=== PATIENT | male | born 1955 | race Two or more races ===

== ENCOUNTER → 2016-06-02 | Outpatient (CLI) | payer OTHER ==
--- NOTE | 2016-06-02 15:37 | RADRPT ---
PROCEDURE: XR AP pelvis. CLINICAL INDICATION: Hip pain TECHNIQUE: AP view of the pelvis performed COMPARISON: No prior studies are available for comparison. FINDINGS: 2 screws present over the right femoral head. There are changes consistent with avascular necrosis involving the right femoral head with increased sclerosis and irregularity of the cortex. There is moderate right hip osteoarthrosis. This is associated with joint space narrowing, subchondr al sclerosis , subchondral cyst formation and osteophytosis. There is normal mineralization. No fr actures or osseous lesions are identified. The soft tissues are unremarkable. 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 RPTAT: HGDB .Sloan Brownlee MD, Date Time Electronically viewed and signed by .Sloan Brownlee MD, on 06/02/2016 15:36 .B/
== END | disposition home or self-care (01) ==
LOC: HKI 15:29
PROVIDERS: ATTEND Orthopaedic Surgery
DX: M16.11 Unilateral primary osteoarthritis, right hip (principal); M25.551 Pain in right hip
CPT/HCPCS: 73502; Z7500; G0463

== ENCOUNTER → 2016-08-04 | Outpatient (CLI) | payer BC, OTHER | END | disposition home or self-care (01) | LOC: HKI 09:32 | PROVIDERS: ATTEND Orthopaedic Surgery | DX: M25.551 Pain in right hip (principal); M16.11 Unilateral primary osteoarthritis, right hip | CPT/HCPCS: G0463 ==

== ENCOUNTER 2016-08-10 05:39 | Inpatient (IN) | payer BC ==
--- NOTE | 2016-08-09 09:56 | RADRPT ---
PROCEDURE: Chest radiograph series. CLINICAL INDICATION: Preop TECHNIQUE: PA and lateral chest x-ray. COMPARISON: None available FINDINGS: The cardiomediastinal silhouette is unremarkable. The lungs and costophrenic angles are clear. The o sseous structures are unremarkable. IMPRESSION: 1. Unremarkable chest radiograph series. RPTAT: AA .Blayne Sidhu MD, MD Date Time Electronically viewed and signed by .Blayne Sidhu MD, on 08/09/2016 09:55 .B/
[2016-08-09 16:56] VITALS: BMI 22.3
[~2016-08-10] VITALS: Ht 177.8 cm; Wt 88.0 kg
[2016-08-10] VITALS (27 sets, daily range): BP systolic 108–139; BP diastolic 56–80; PULSE 56–78; RESP 8–20; Ht 177.8 cm; Wt 88.0 kg
[2016-08-10] MEDS: LACTATED RINGER'S 1,000 ML IV SCH ×4 (05:00→17:57)
[~2016-08-10 05:39] MED LIST: BUPIVACAINE LIPOSOME/PF 266 MG/20 ML VIAL INFIL ONE; CEFAZOLIN 2GM/50 ML (PMX) 50 ML X1 BEFORE INCISION IVPB ONE; CELECOXIB 400 MG PO X1 DOSE PO ONE; PAIN COCKTAIL-CEFUROXIME IRR ONE; PREGABALIN 300 MG PO X1 PO ONE; SOD CHLORIDE 0.9% IV ONE; TRANEXAMIC ACID 890 MG in SOD CHLORIDE 0.9% 100 ML IVPB ONE; TRANEXAMIC ACID IV ONE; oxyCODONE (CR) 10 MG TAB [oxyCONTIN] X1 DOSE PO ONE; traMADOL 50 MG TAB X 1 DOSE PO ONE
[2016-08-10] MEDS ORDERED: BACITRACIN 50000 UNITS INJ ONE (06:37)
[2016-08-10] MEDS ORDERED: POLYMYXIN B 500000 UNIT INJ ONE (06:41)
[2016-08-10] MEDS ORDERED: VANCOMYCIN 1 GM INJ ONE (06:41)
[2016-08-10] MEDS ORDERED: SODIUM CL BACTERIOSTATIC 30 ML INJ ONE (06:41)
[2016-08-10] MEDS ORDERED: DESFLURANE 15 MIN ONE ×2 (07:00)
[2016-08-10] MEDS ORDERED: LIDOCAINE 2% (SDV) 5 ML INJ ONE ×2 (07:00)
[2016-08-10] MEDS ORDERED: GLYCOPYRROLATE 0.4 MG INJ ONE (07:05)
[2016-08-10] MEDS ORDERED: MIDAZOLAM 1 MG/ML 2 ML INJ ONE (07:05)
[2016-08-10] MEDS ORDERED: CEFAZOLIN 1 GM INJ ONE ×2 (07:05→07:13)
[2016-08-10] MEDS ORDERED: PROPOFOL 0 ML ONE (07:05)
[2016-08-10] MEDS ORDERED: NEOSTIGMINE 3 MG/3 ML SYRINGE ONE (07:05)
[2016-08-10] MEDS ORDERED: ROCURONIUM 50 MG INJ ONE (07:05)
[2016-08-10] MEDS ORDERED: ONDANSETRON 4 MG INJ ONE (07:06)
[2016-08-10] MEDS ORDERED: FENTAnyl 50 MCG/ML VIAL ONE (07:06)
[2016-08-10] MEDS ORDERED: DEXAMETHASONE 4 MG/ML 1 ML INJ ONE (07:06)
[2016-08-10] MEDS ORDERED: PROPOFOL 100 ML ONE (07:13)
[2016-08-10] MEDS ORDERED: ETOMIDATE 20 MG INJ ONE (07:16)
--- NOTE | 2016-08-10 07:18 | HPN ---
Date/Time of Note Date/Time of Note DATE: 08/10/16 TIME: 07:17 Interval H&P Admission Note Pt. seen H&P reviewed: No system changes No change from H&P on 08/08/16 by TOMAS Lerner MD Aug 10, 2016 07:18
[2016-08-10] MEDS ORDERED: MIDAZOLAM 1 MG/ML 2 ML INJ IV PRN (08:30)
[2016-08-10] MEDS ORDERED: TRIMETHOBENZAMIDE 100 MG/ML VIAL IM PRN (08:30)
[2016-08-10] MEDS ORDERED: HYDROmorphONE (0.2 MG/ML) 10ML SYG IV PRN ×3 (08:30)
[2016-08-10] MEDS ORDERED: ONDANSETRON 4 MG INJ IV PRN ×2 (08:30→10:30)
[2016-08-10] MEDS ORDERED: FENTAnyl 50 MCG/ML VIAL IV PRN ×3 (08:30)
[2016-08-10] MEDS ORDERED: EPHEDrine SULFATE 50 MG/5 ML SYG IV PRN (08:30)
[2016-08-10] MEDS ORDERED: hydrALAzine 20 MG INJ IV PRN (08:30)
[2016-08-10] MEDS ORDERED: LABETALOL HCL 20MG INJ IV PRN (08:30)
[2016-08-10] MEDS ORDERED: DIPHENHYDRAMINE 50 MG INJ IV PRN (08:30)
[2016-08-10] MEDS ORDERED: MEPERIDINE 25 MG INJ IV PRN (08:30)
--- NOTE | 2016-08-10 09:42 | RADRPT ---
PROCEDURE: Intraoperative imaging of the right hip with fluoroscopy. CLINICAL INDICATION: Right hip pain. Intraoperative. TECHNIQUE: 18 images of the right hip were obtained in the operating room with an image intensifie r. No radiologist was in attendance. 0.5 minutes of fluoroscopy time was used. COMPARISON: No prior study is available for comparison. FINDINGS: Images demonstrate placement of a total right hip arthroplasty. IMPRESSION: 1. Satisfactory intraoperative imaging of the right hip. RPTAT: QQ .Angelito Stinson MD, MD Date Time Electronically viewed and signed by .Angelito Stinson MD, MD on 08/10/2016 09:42 .R/
--- NOTE | 2016-08-10 10:28 | PN ---
Date/Time of Note Date/Time of Note DATE: 08/10/16 TIME: 10:25 Assessment/Plan Lines/Catheters IV Catheter Type (from Nrsg): Peripheral IV Assessment/Plan Assessment/Plan Stable in PACU, right anterior KELLY -continue abx until drains removed -pain meds as needed -ASA/SCDs for DVT prophylaxis -OOB with PT -check AM labs -monitor drain -d/c garcia in AM XR of the right hip is pending at this time Subjective 24 Hr Interval Summary Stable in PACU. Moving all extremities. Denies pain. Exam/Review of Systems Vital Signs Vitals Vital Signs Date Time Temp Pulse Resp B/P Pulse Ox O2 Delivery O2 Flow Rate FiO2 08/10/16 10:23 98.1 08/10/16 06:41 71 18 132/78 98 Exam Free Text/Dictation Hemovac: minimal Dressing dry Incision clean, dry, and intact without redness or drainage 5/5 Quadriceps, Tibialis Anterior, EHL, Gastroc, Soleus, Peroneals Normal sensation Palpable DT/PT, CR <2 sec No distal edema REJI SABILLON PA-C Aug 10, 2016 10:27
--- NOTE | 2016-08-10 10:29 | OPR ---
Date/Time of Note Date/Time of Note DATE: 08/10/16 TIME: 10:28 Operative Report Free Text/Dictation Dictation # [id number] Procedure Date: Aug 10, 2016 Preoperative Diagnosis Post-traumatic right hip OA Postoperative Diagnosis Same Operation Performed Conversion of previous right hip surgery to right anterior KELLY Surgeon: TOMAS RAPHAEL MD dental assistant: REJI SABILLON PA-C Anesthesia: general, spinal Anesthesiologist: Abdullahi Underwood M.D. Estimated Blood Loss: 250 - 300 ml's Specimens Femoral Head Tubes/Drains Hemovac x 1 Complications: None Pt Condition Post Procedure: stable Disposition: PACU TOMAS RAPHAEL MD Aug 10, 2016 10:29
[2016-08-10] MEDS ORDERED: NACL 0.9% 3 ML SYG IV SCH (10:30)
[2016-08-10] MEDS ORDERED: NA PHOSPHATE/BIPHOS 133 ML ENEMA PR PRN (10:30)
[2016-08-10] MEDS ORDERED: BISACODYL 10 MG SUPP PR PRN (10:30)
[2016-08-10] MEDS ORDERED: oxyCODONE 5 MG TAB PO PRN ×2 (10:30)
[2016-08-10] MEDS ORDERED: HYDROmorphONE 1 MG/ML SYG IV PRN (10:30)
[2016-08-10] MEDS ORDERED: MAGNESIUM HYDROXIDE 30ML CUP PO PRN (10:30)
[2016-08-10] MEDS ORDERED: DIPHENHYDRAMINE 25 MG CAP PO PRN (10:30)
[2016-08-10] MEDS ORDERED: ASPIRIN (EC) 325 MG TAB PO ONE (10:30)
[2016-08-10] MEDS: CEFAZOLIN 2 GM/50 ML (PMX) 50 ML IVPB SCH ×2 (10:57→21:11)
--- NOTE | 2016-08-10 11:03 | OPR ---
DATE OF OPERATION: 08/10/2016 PREOPERATIVE DIAGNOSIS: Post-traumatic right hip osteoarthritis. POSTOPERATIVE DIAGNOSIS: Post-traumatic right hip osteoarthritis. OPERATION PERFORMED: Conversion of previous surgery to right total hip arthroplasty. SURGEON: Tomas Guy MD TRUSTEE OF ESTATE: EDIL Skinner COMPONENTS USED: DePuy size 58 mm Gryption [employer] cup, 58/36 neutral Altrx polyethylene liner, size 9 standard ACTIS stem, 36+1.5 ceramic head. ANESTHESIA: Spinal plus general endotracheal intubation plus periarticular injection. ANESTHESIOLOGIST: Dr. Underwood. ESTIMATED BLOOD LOSS: 300 mL. INTRAVENOUS FLUIDS: Two liters crystalloid. SPECIMENS: Femoral head. DRAINS: Hemovac x1. COMPLICATIONS: None. DISPOSITION: Patient tolerated the procedure well and was taken to the recovery room in stable condition. INDICATIONS: The patient is a 61-year-old gentleman who had a previous injury to his right hip and underwent an open reduction internal fixation of a femoral head fracture. He has gone on to develop significant posttraumatic osteoarthritis of the hip. He has failed nonsurgical means of treatment to control his pain including activity modifications, pain medications and ambulatory assist devices. Despite these measures, he has had worsening pain and I felt he would benefit from a total hip arthroplasty through an anterior approach. The remainder of was placed and Please note that where the incision was made. Following the previous [place]. DISPOSITION: The patient tolerated the procedure well and was taken to the recovery room in stable condition. The risks, benefits, and alternatives of the procedure were explained in detail to the patient. I explained the risks of the surgery to include, but not be limited to: bleeding and possible need for blood transfusion; infection; pain; stiffness; neurovascular injury with possible numbness, weakness, and/or paralysis anywhere from the hip down to the toes; fracture; instability; dislocation; leg length inequality; wear and/or loosening of the prosthesis and possible need for future revision; blood clots; pulmonary embolism; and anesthetic complications such as heart attack, stroke, GI bleed, pneumonia, and/ or . Ample time was allowed for the patient to ask questions, all of which were addressed and answered. The patient understood the risks involved and wished to proceed. Informed consent was signed prior to the procedure. PROCEDURE: The patient's right hip was initialed with a marking pen in the preoperative area to identify the correct operative site. The patient was brought to the operating room and transferred from the [facility] to the [facility] table where a spinal anesthetic was administered. The patient was then anesthetized and intubated. A Solis catheter was placed. Both feet were placed into well-padded boots which were then placed into the leg holders of the traction booms. A timeout was performed to confirm that the right side was the correct operative site. The patient was given 2 g of intravenous Ancef within one hour prior to the procedure. The operative hip was prepped and draped in the usual sterile fashion. The previous [place] scar was excised. The tensor fascia mian was incised along the length of the wound. The tensor fascia muscle was retracted laterally and the sartorius medially. The anterior circumflex vessels were identified and tied off with 2-0 silk suture and coagulated with the Tissue Link spice grinder. The rectus femoris was elevated off the anterior capsule and an anterior capsulectomy performed. A femoral neck osteotomy was made and the head removed from the acetabulum. The acetabulum was denuded of cartilage circumferentially, as was the femoral head. Retractors were placed around the acetabulum. The remnants of the labrum and ligamentum teres were excised. I reamed the acetabulum to the medial wall and then went into an anatomic position and increased the reamer size in 2 mm increments until I got a good bite and was down to bleeding subchondral bone. The [employer] cup was opened and impacted into the acetabulum and sat flush circumferentially, getting a good bite. C-arm imaging showed it had about 40 to 45 degrees of abduction and 20 degrees of anteversion. The real liner was opened and impacted into the acetabulum and sat flush circumferentially. Attention was turned towards the femur. The operative leg was carefully lowered to the floor with the leg adducted. The foot was then externally rotated to approximately 110 degrees. A posteromedial release was performed to optimize exposure. The femoral hook was placed underneath the proximal femur and the hydraulic lift was then used to elevate the femur up out of the wound. The cookkwadwo cutter osteotome was used to remove the remaining overhanging greater trochanter. The femur was then broached, going up in one size increments until it sat flush with the neck cut and a stable fit was achieved. The trial neck and head were assembled and reduced into the acetabulum. Fluoroscopic imaging showed the components to be in good position and the leg lengths and offsets to be equal. At this point, the trial was dislocated and the trial broach removed. The canal was irrigated and dried. The real stem was opened and impacted into the femur. The trunnion was irrigated and dried, and the real femoral head was impacted onto the trunnion, and reduced into the acetabulum. The soft tissues were infiltrated with a mixture of 150 mg of 0.5% Bupivacaine, 8 mg of Duramorph, 300 mcg of epinephrine, 30 mg of Toradol, 100 mcg of clonidine, 750 mg of cefuroxime and 86 mL of normal saline, followed by an injection of 266 mg of liposomal Bupivacaine. At this point the hip was irrigated with a mixture of betadine/saline and then antibiotic saline with pulsatile lavage. A Hemovac drain was placed in the deep portion of the wound and brought out the anterolateral thigh. There was good hemostasis. The tensor fascia mian was repaired with a running #1 Vicryl. The deep fat layer was irrigated and closed with 2-0 Stratafix and the subcutaneous layer closed with 3 -0 Vicryl and the skin was closed with shruthi and then sealed with Dermabond. The drain was secured with 3-0 nylon. The sponge and needle counts were correct at the end of the case. The wound was covered with an occlusive dressing. The patient was awakened, extubated, and taken to the recovery room in stable condition. Dictated By: TOMAS TAMEZ/RUT Conf#: [id number] DID#: [id number] MTDHema
[2016-08-10 12:12] LABS: ADD UMIC NO; URINE BILIRUBIN (Dip) NEGATIVE (NEGATIVE); URINE BLOOD (Dip) NEGATIVE (NEGATIVE); URINE COLOR LT. YELLOW (YELLOW); URINE GLUCOSE (Dip) NEGATIVE (NEGATIVE); URINE KETONES (Dip) NEGATIVE (NEGATIVE); URINE LEUKOCYTE ESTERASE (Dip) NEGATIVE (NEGATIVE); URINE NITRITE (Dip) NEGATIVE (NEGATIVE); URINE TOTAL PROTEIN (Dip) NEGATIVE (NEGATIVE); URINE UROBILINOGEN (Dip) 0.2 E.U./dL (0.1-1.0)
--- NOTE | 2016-08-10 12:28 | CONS ---
DATE OF ADMISSION: 08/10/2016 DATE OF CONSULTATION: 08/10/2016 REASON FOR CONSULTATION: Medical management postoperatively. CHIEF COMPLAINT: Right hip pain. HISTORY OF PRESENT ILLNESS: This is a pleasant 61-year-old gentleman with no significant past medic al history who has been seen and evaluated by his primary care physician, Dr. Júnior Woo, secondar y to having right hip pain and was referred to Dr. Guy as outpatient for evaluation of his right hip, which was found to have posttraumatic right hip osteoarthritis. According to the history, the patient has a previous injury to his right hip and underwent open reduction internal fixation of the femoral head fracture, and he has gone on to have significant post-traumatic osteoarthritis of his hip. He has failed nonsurgical means of treatment to control his pain including activity modificati on, pain medication and ambulatory assist device. Despite these measures, he has had worsening of t he pain in his right hip and it was felt that he would benefit from total hip arthroplasty. After discussing the mode of treatment and risks and benefits of the surgery, the patient agreed to proceed with surgical intervention. Today, on 08/10/2016, after signing consent, the patient was ta shaneka to OR for conversion of the previous surgery to the right total hip arthroplasty. The patient t olerated the procedure well. Estimated blood loss 300 mL, 2 liters of crystalloid was given. The p atient has a Hemovac drain and the specimen taken was femoral head. The patient was extubated and w as transferred to recovery room where medicine team was consulted. At this time, the patient denies having any fever, chills, weight gain, weight loss, anorexia. No chest pain, palpitations, edema, orthopnea. No change in visual acuity, diplopia, photophobia. No headache, dizziness, lightheadedn ess. No change in visual acuity, no abdominal pain, no nausea, vomiting, diarrhea, or any other dis comfort. He does complain of having mild right hip discomfort postoperatively which is well control led by pain medication. PAST MEDICAL AND SURGICAL HISTORY: 1. Posttraumatic Right hip osteoarthritis. 2. Right hip open reduction internal fixation of the femoral head fracture. MEDICATIONS: None. SOCIAL HISTORY: Negative for smoking. He drinks alcohol occasionally. No illicit drug history. P ositive for diabetes mellitus and heart disease. ALLERGIES: NO KNOWN DRUG ALLERGIES. REVIEW OF SYSTEMS: Negative for headache, head trauma, no blurred vision, no change in vision, no t innitus or change in hearing. No neck stiffness. No sore throat, dysphagia. No palpitations, ches t pain. No cough, wheezing. No nausea, vomiting, melena or hematochezia. No dysuria, hematuria, n o weakness in upper and lower extremities. No history of seizure. No rash or lesion, no history of anxiety or depression. PHYSICAL EXAMINATION: VITAL SIGNS: Temperature 98.1, pulse 60, respiration rate 10 to 16, blood pressure 117/71, oxygen 9 8% on room air. GENERAL APPEARANCE: The patient is lying in bed comfortably without any distress. He is awake, aline rt, oriented. He is able to answer my questions properly. EYES AND ENT: Conjunctivae and lids are normal. Pupils are normal. Extraocular normal. Hearing g rossly normal. Lips are normal. Oral mucosa is moist. NECK: Supple. Trachea is midline. No lymphadenopathy. RESPIRATORY: Effort is normal. Clear to auscultation bilaterally. CARDIOVASCULAR: Normal S1, S2. Regular rhythm and rate. No murmur, no bruits, no edema. Peripher al pulses and radial pulses palpable. Cap refill is normal. CHEST: Normal expansion of thorax during inspiration. GASTROINTESTINAL: Abdomen is soft, nontender, not distended. Bowel sounds present. No guarding, n o rebound. GENITOURINARY: Deferred. MUSCULOSKELETAL: Upper extremity within normal limits. Left lower extremity within normal limits. Right lower extremity, status post hip surgery. Surgical site is dry and cleansed. Hemovac drain i n place, intact. NEUROLOGIC: Cranial nerves II through XII are grossly intact. PSYCHIATRIC: Normal judgment and insight. Alert and oriented x3. Mood and affect is normal. LABORATORY WORK AND IMAGING: WBC 6.5, hemoglobin 13.3, hematocrit 38.9, platelets 238. Sodium 141, potassium 4.1, chloride 102, bicarbonate 27, calcium 9.5, AST 18, ALT 23, BUN 16, creatinine 0.88, glucose 99. GFR 94. ASSESSMENT AND PLAN: 1. Posttraumatic right hip osteoarthritis status conversion of previous right hip surgery to anteri or total hip arthroplasty. Continue post-surgical care. PT, OT evaluate and treat, pain management . For deep venous thrombosis prophylaxis, the patient will be placed on aspirin as per orthopedic s urgeon recommendation. 2. Continue cefazolin prophylactically. 3. For gastrointestinal prophylaxis, on Protonix. Dictated By: WOODROW GÓMEZ/RUT Conf#: [id number] DID#: [id number]
[2016-08-10 12:31] LABS: HEMOGLOBIN 12.5 g/dl (14.0-18.0)
[2016-08-10] MEDS: ACETAMINOPHEN 1000MG/100ML IV 100 ML IVPB SCH ×3 (12:41→23:58)
[2016-08-10] MEDS: traMADol 50 MG TAB PO SCH ×3 (12:41→23:58)
[2016-08-10 12:50] LABS: POTASSIUM 3.6 mmol/L (3.5-5.1)
[2016-08-10 12:53] LABS: CALCIUM 8.6 mg/dl (8.4-10.2); CREATININE 0.64 mg/dl (0.61-1.24)
[2016-08-10] MEDS ORDERED: EXPAREL NOTE (BUPIVICAINE LIPOSOMAL) XX SCH (13:00)
[2016-08-10] MEDS ORDERED: TRANEXAMIC ACID 880 MG in SOD CHLORIDE 0.9% 100 ML IVPB ONE ×2 (15:00→18:00)
--- NOTE | 2016-08-10 15:17 | RADRPT ---
PROCEDURE: XR Pelvis. CLINICAL INDICATION: Hip pain TECHNIQUE: Single AP view of the pelvis. COMPARISON: No prior studies are available for comparison. FINDINGS: Right hip replacement is identified. The prosthetic components are in appropriate position and alig nment. The osseous structures are intact. No destructive bony lesions are observed. Left hip join t is unremarkable.. Soft tissue drain is seen over the right hip. Soft tissue air over the right h ip is procedural in nature. Solis catheter is seen in the pelvis. IMPRESSION: Right hip replacement. Prosthetic components are in appropriate position and alignment. RPTAT: AA .Be Flowers MD, Date Time Electronically viewed and signed by .Be Flowers MD, on 08/10/2016 15:17 .P/
--- NOTE | 2016-08-10 15:18 | RADRPT ---
PROCEDURE: XR Right Hip. CLINICAL INDICATION: Status post hip replacement TECHNIQUE: AP view of the right hip was obtained. The images reviewed on a PACS workstation. COMPARISON: June 02, 2016 FINDINGS: Right hip replacement is identified. Prosthetic components are in appropriate position and alignmen t. No fractures or destructive lesions are observed. Surgical drain is seen in the hip. Soft tissu e air is procedural in nature. IMPRESSION: Status post right hip replacement. Prosthetic components are in appropriate position and alignment. RPTAT: AA .Be Flowers MD, Date Time Electronically viewed and signed by .Be Flowers MD, on 08/10/2016 15:18 .P/
[2016-08-10] MEDS: PANTOPRAZOLE (EC) 40 MG TAB PO SCH (17:56)
[2016-08-10] MEDS: PREGABALIN 50 MG CAP PO SCH (20:08)
[2016-08-10] MEDS: DOCUSATE SODIUM 100 MG CAP PO SCH (20:08)
[2016-08-11] MEDS: LACTATED RINGER'S 1,000 ML IV SCH ×6 (01:15→21:00)
[2016-08-11] MEDS: CEFAZOLIN 2 GM/50 ML (PMX) 50 ML IVPB SCH (03:40)
[2016-08-11 05:28] LABS: HEMOGLOBIN 10.4 g/dl (14.0-18.0)
[2016-08-11] MEDS: ACETAMINOPHEN 1000MG/100ML IV 100 ML IVPB SCH (05:42)
[2016-08-11] MEDS: traMADol 50 MG TAB PO SCH ×3 (05:42→17:25)
[2016-08-11] MEDS: PANTOPRAZOLE (EC) 40 MG TAB PO SCH ×2 (05:42→17:25)
[2016-08-11 05:50] LABS: CALCIUM 8.3 mg/dl (8.4-10.2); CREATININE 0.64 mg/dl (0.61-1.24); POTASSIUM 4.2 mmol/L (3.5-5.1)
[2016-08-11 08:12] VITALS: BP 120/73; RESP 18
[2016-08-11] MEDS: ASPIRIN (EC) 325 MG TAB PO SCH ×2 (08:17→20:40)
[2016-08-11] MEDS: DOCUSATE SODIUM 100 MG CAP PO SCH ×2 (08:17→20:40)
[2016-08-11] MEDS: PREGABALIN 50 MG CAP PO SCH ×2 (08:17→20:41)
[2016-08-11] MEDS: CELECOXIB 200 MG CAP PO SCH (08:17)
--- NOTE | 2016-08-11 08:34 | PN ---
Date/Time of Note Date/Time of Note DATE: 08/11/16 TIME: 08:33 Assessment/Plan Lines/Catheters IV Catheter Type (from Nrsg): Peripheral IV Solsi in Place (from Nrsg): Yes Assessment/Plan Assessment/Plan Stable POD #1, s/p right anterior KELLY -d/c abx -pain meds as needed -ASA/SCDs for DVT prophylaxis -OOB with PT -drain removed -check AM labs -d/c planning. Will plan to go home tomorrow Subjective 24 Hr Interval Summary No acute overnight events. Denies any significant pain. Began PT yesterday and made excellent progress. VSS, afebrile. Will plan to go home upon discharge. Exam/Review of Systems Vital Signs Vitals Vital Signs Date Time Temp Pulse Resp B/P Pulse Ox O2 Delivery O2 Flow Rate FiO2 08/11/16 08:12 97.8 65 18 120/73 99 08/10/16 17:00 Room Air 08/10/16 15:00 2.0 Intake and Output 08/10/16 08/10/16 08/11/16 15:00 23:00 07:00 Intake Total 3100 ml 3637.6 ml 1100 ml Output Total 1910 ml 4300 ml 3900 ml Balance 1190 ml -662.4 ml -2800 ml Exam Free Text/Dictation Hemovac: 510cc Dressing dry Incision clean, dry, and intact without redness or drainage 5/5 Quadriceps, Tibialis Anterior, EHL, Gastroc, Soleus, Peroneals Normal sensation Palpable DT/PT, CR <2 sec No distal edema Results Result Diagram: 08/11/16 0450 08/11/16 0450 REJI SABILLON PA-C Aug 11, 2016 08:34
--- NOTE | 2016-08-11 10:12 | PN ---
Date/Time of Note Date/Time of Note DATE: 08/11/16 TIME: 10:10 Assessment/Plan VTE Prophylaxis VTE Prophylaxis Intervention: other Lines/Catheters IV [facility]from [facility] Saline Lock Urinary Cath still in place: No Assessment/Plan Chief Complaint/Hosp Course ASSESSMENT AND PLAN: 1. Posttraumatic right hip osteoarthritis status conversion of previous right hip surgery to anterior total hip arthroplasty. Continue post-surgical care. Continue PT/ OT evaluate and treat, pain management. For deep venous thrombosis prophylaxis, on aspirin as per orthopedic surgeon recommendation. 2. For gastrointestinal prophylaxis, on Protonix. We will continue monitor patient closely for recommendation management and treatment as per clinical course Problems: Subjective 24 Hr Interval Summary Free Text/Dictation Denies of any chest pain or shortness of breath Right hip drain has been removed by orthopedic surgeon Ambulate with minimal discomfort Tolerating oral intake Exam/Review of Systems Vital Signs Vitals Vital Signs Date Time Temp Pulse Resp B/P Pulse Ox O2 Delivery O2 Flow Rate FiO2 08/11/16 08:12 97.8 65 18 120/73 99 08/10/16 17:00 Room Air 08/10/16 15:00 2.0 Intake and Output 08/10/16 08/10/16 08/11/16 15:00 23:00 07:00 Intake Total 3100 ml 3637.6 ml 1100 ml Output Total 1910 ml 4300 ml 3900 ml Balance 1190 ml -662.4 ml -2800 ml Exam General: The patient is well-developed, Not in acute distress. HEENT: Atraumatic, normocephalic. The pupils are equal and round . Neck: Supple with full range of motion. Chest: Normal expansion of the thorax during inspiration Lungs: Clear to auscultation bilaterally Heart: Normal S1-S2, Regular rhythm and rate. Abdomen: Soft , nontender, nondistended , bowel sounds are present. Extremities: Right hip surgical site is dry and clean with no evidence of hematoma. No edema no cyanosis Neurologic: Normal mental status,The patient is awake, alert and oriented . Results Result Diagram: 08/11/16 0450 08/11/16 0450 Results 24 hrs Laboratory Tests Test 08/10/16 12:20 08/11/16 04:50 Hemoglobin 12.5 L 10.4 L Hematocrit 38.0 L 32.0 L Sodium Level 140 135 Potassium Level 3.6 4.2 Chloride Level 104 107 Carbon Dioxide Level 27 27 Anion Gap 13 5 #L Blood Urea Nitrogen 12 10 Creatinine 0.64 0.64 Glucose Level 162 121 # Calcium Level 8.6 8.3 L Medications Medications Current Medications Lactated Ringer's (Lr) 1,000 ml @ 100 mls/hr Q10H IV Last administered on 08/11 01:15; Admin Dose 100 MLS/HR; Start 08/10/16 at 05:00 Miscellaneous Information 1 ea 1 ea NOTE XX ; Start 08/10/16 at 13:00; Stop at 12:59 Lactated Ringer's (Lr) 1,000 ml @ 125 mls/hr Q8H IV Last administered on 12:42; Admin Dose 125 MLS/HR; Start 08/10/16 at 10:20 Celecoxib 200 mg 200 mg DAILY PO Last administered on 08/11/16 08:17; Admin Dose 200 MG; Start 08/11/16 at 09:00 Acetaminophen (Ofirmev 1000mg/ 100ml Iv) 100 ml @ 400 mls/hr Q6 IVPB Last administered on 08/11/16 05:42; Admin Dose 400 MLS/HR; Start 08/10/16 at 12:00 ; Stop 08/11/16 at 11:59 Tramadol HCl (Ultram) 50 mg Q6 PO Last administered on 08/11/16 05:42; Admin Dose 50 MG; Start 08/10/16 at 12:00; Stop 08/13/16 at 11:59 Oxycodone HCl (Roxicodone) 5 mg Q4H PRN PO PAIN LEVEL 1-3; Start 08/10/16 at 10 :30 Oxycodone HCl (Roxicodone) 10 mg Q4H PRN PO PAIN LEVEL 4-7; Start 08/10/16 at 10:30 Hydromorphone HCl (Dilaudid) 1 mg Q3H PRN IV PAIN LEVEL 8-10; Start 08/10/16 at 10:30 Ondansetron HCl (Zofran Inj) 4 mg Q6H PRN IV NAUSEA AND/OR VOMITING; Start at 10:30 Bisacodyl (Dulcolax Supp) 10 mg Q12H PRN RI CONSTIPATION; Start 08/10/16 at 10: 30 Magnesium Hydroxide (Milk Of Mag) 30 ml BID PRN PO CONSTIPATION; Start at 10:30 Sodium Biphosphate/ Sodium Phosphate (Fleet Enema) 133 ml DAILY PRN RI CONSTIPATION; Start 08/10/16 at 10:30 Docusate Sodium (Colace) 100 mg BID PO Last administered on 08/11/16 08:17; Admin Dose 100 MG; Start 08/10/16 at 21:00 Diphenhydramine HCl (Benadryl) 25 mg Q6H PRN PO PRURITUS; Start 08/10/16 at 10: 30 Aspirin (Ecotrin) 325 mg BID PO Last administered on 08/11/16 08:17; Admin Dose 325 MG; Start 08/11/16 at 09:00 Pregabalin (Lyrica) 50 mg BID PO Last administered on 08/11/16 08:17; Admin Dose 50 MG; Start 08/10/16 at 21:00 Pantoprazole (Protonix Tab) 40 mg BID@,18 PO Last administered on 08/11/16 05:42; Admin Dose 40 MG; Start 08/10/16 at 18:00 WOODROW ROCK MD Aug 11, 2016 10:12
[2016-08-11 11:14] LABS: ADD UMIC YES; URINE BILIRUBIN (Dip) NEGATIVE (NEGATIVE); URINE BLOOD (Dip) TRACE (NEGATIVE); URINE COLOR LT. YELLOW (YELLOW); URINE GLUCOSE (Dip) NEGATIVE (NEGATIVE); URINE KETONES (Dip) NEGATIVE (NEGATIVE); URINE LEUKOCYTE ESTERASE (Dip) TRACE (NEGATIVE); URINE NITRITE (Dip) NEGATIVE (NEGATIVE); URINE TOTAL PROTEIN (Dip) NEGATIVE (NEGATIVE); URINE UROBILINOGEN (Dip) 0.2 E.U./dL (0.1-1.0)
[2016-08-11 11:47] LABS: BACTERIA,URINE RARE; URINE RBCS 0-2 /HPF (0)
[2016-08-11 20:18] VITALS: BP 115/62; RESP 20
[2016-08-12] MEDS: traMADol 50 MG TAB PO SCH ×3 (00:21→11:47)
[2016-08-12] MEDS: LACTATED RINGER'S 1,000 ML IV SCH ×3 (02:20→08:50)
[2016-08-12] MEDS: PANTOPRAZOLE (EC) 40 MG TAB PO SCH (05:25)
[2016-08-12 05:39] LABS: HEMOGLOBIN 10.1 g/dl (14.0-18.0)
[2016-08-12 06:06] LABS: POTASSIUM 3.7 mmol/L (3.5-5.1)
[2016-08-12 06:09] LABS: CREATININE 0.65 mg/dl (0.61-1.24)
[2016-08-12 06:10] LABS: CALCIUM 8.3 mg/dl (8.4-10.2)
[2016-08-12 07:22] LABS: IRON 13 ug/dl (35-150)
[2016-08-12 07:32] LABS: TOTAL IRON BINDING CAPACITY 254 ug/dl (241-421)
[2016-08-12 08:11] VITALS: BP 122/72; RESP 18
--- NOTE | 2016-08-12 08:36 | PDOCDIS ---
Discharge Instructions DIAGNOSIS Discharge Diagnosis: s/p right anterior KELLY CONDITION Patient Condition: Good HOME CARE INSTRUCTIONS: Diet Instructions: RegularSpecial Diet: REGULAR ACTIVITY: Activity Restrictions: Slowly Increase Activity Rest between Activity Avoid heavy lifting Do not operate Machinery Do not operate Power Tool Avoid Heavy Housework Keep Limb Elevated Bathing Restrictions: Shower FOLLOW UP/APPOINTMENTS Appointments follow up in the office in 1 week OTHER ORDERS: Other Orders: S/P Anterior KELLY Physical Therapy: Three times per week at home x 2 weeks Daily in Rehab/SNF (if applicable) WB STATUS: WBAT Strengthening exercises for both upper and un-operated lower extremities. 1. Gait training with front wheeled walker 2. Wide base gait, no pivot turns. 3. Abductor strengthening. 4. Quadriceps and hamstring strengthening. 5. May switch to cane in contra lateral hand 6 weeks after surgery. 6. Physical Therapy can open case if nursing is not available. 7. Ice Packs while at rest to surgical wound for 20 minutes, 3 times/day. 8. Patient requires mobile SCDs to reduce risk of developing DVT following KELLY. Patient will use the mobile SCDs for 30 days postoperatively. Hip Precautions: No posterior hip precautions. Bathing assistance by home health aide twice weekly if Medicare patient. Occupational Therapy: Evaluation for assistive devices and ADL training. Wound Care: Keep incision dry & covered with Tegaderm until first visit with Dr. Guy Anticoagulation Orders: Enteric Coated Aspirin 325 mg po bid x 6 weeks from date of surgery Follow-up:Call for an appointment with Dr. Guy in 1 week after discharged from hospital at DME Orders: BLANQUITA, 3-in-1 Commode, Mobile SCDs REJI SABILLON PA-C Aug 12, 2016 08:36
[2016-08-12] MEDS ORDERED: HYDR-906 PO (08:37)
[2016-08-12] MEDS ORDERED: TRAM50TA2 PO (08:37)
[2016-08-12] MEDS ORDERED: PANT40TA4 PO (08:37)
[2016-08-12] MEDS ORDERED: ASPI325T32 PO (08:37)
[2016-08-12] MEDS: ASPIRIN (EC) 325 MG TAB PO SCH (08:49)
[2016-08-12] MEDS: PREGABALIN 50 MG CAP PO SCH (08:49)
[2016-08-12] MEDS: DOCUSATE SODIUM 100 MG CAP PO SCH (08:49)
[2016-08-12] MEDS: CELECOXIB 200 MG CAP PO SCH (08:49)
--- NOTE | 2016-08-12 08:59 | PN ---
Date/Time of Note Date/Time of Note DATE: 08/12/16 TIME: 08:57 Assessment/Plan Lines/Catheters IV Catheter Type (from Nrsg): Saline Lock [place] in Place (from Nrsg): No Assessment/Plan Assessment/Plan Stable POD #2, s/p right anterior KELLY -pain meds as needed -ASA/SCDs -OOB with PT -dressing changed -d/c home today -follow up in the office in 1 week Subjective 24 Hr Interval Summary No acute overnight events. Denies any significant pain. VSS, afebrile. Would like to go home today. Exam/Review of Systems Vital Signs Vitals Vital Signs Date Time Temp Pulse Resp B/P Pulse Ox O2 Delivery O2 Flow Rate FiO2 08/12/16 08:11 97.9 73 18 122/72 96 08/10/16 17:00 Room Air 08/10/16 15:00 2.0 Intake and Output 08/11/16 08/11/16 08/12/16 15:00 23:00 07:00 Intake Total 700 ml 3520 ml 2100 ml Output Total 3600 ml 2200 ml Balance 700 ml -80 ml -100 ml Exam Free Text/Dictation Dressing dry Incision clean, dry, and intact without redness or drainage 5/5 Quadriceps, Tibialis Anterior, EHL, Gastroc, Soleus, Peroneals Normal sensation Palpable DT/PT, CR <2 sec No distal edema Results Result Diagram: 08/12/16 0423 08/12/16 0423 REJI SABILLON PA-C Aug 12, 2016 08:58
--- NOTE | 2016-08-12 11:24 | PN ---
Date/Time of Note Date/Time of Note DATE: 08/12/16 TIME: 11:23 Assessment/Plan VTE Prophylaxis VTE Prophylaxis Intervention: other (ASA) Lines/Catheters IV [facility] (from [facility] Saline Lock Urinary Cath still in place: No Assessment/Plan Assessment/Plan ASSESSMENT AND PLAN: 1. Posttraumatic right hip osteoarthritis status conversion of previous right hip surgery to anterior total hip arthroplasty. on ASA for DVT prophylaxis 2. For gastrointestinal prophylaxis, on Protonix. We will continue monitor patient closely for recommendation management and treatment as per clinical course Subjective 24 Hr Interval Summary Free Text/Dictation c/o pain in hip, BP stable, afebrile Exam/Review of Systems Vital Signs Vitals Vital Signs Date Time Temp Pulse Resp B/P Pulse Ox O2 Delivery O2 Flow Rate FiO2 08/12/16 08:11 97.9 73 18 122/72 96 08/10/16 17:00 Room Air 08/10/16 15:00 2.0 Intake and Output 08/11/16 08/11/16 08/12/16 14:59 22:59 06:59 Intake Total 700 ml 3520 ml 2100 ml Output Total 3600 ml 2200 ml Balance 700 ml -80 ml -100 ml Exam General: The patient is well-developed, Not in acute distress. HEENT: Atraumatic, normocephalic. The pupils are equal and round . Neck: Supple with full range of motion. Chest: Normal expansion of the thorax during inspiration Lungs: Clear to auscultation bilaterally Heart: Normal S1-S2, Regular rhythm and rate. Abdomen: Soft , nontender, nondistended , bowel sounds are present. Extremities: Right hip surgical site is dry and clean with no evidence of hematoma. No edema no cyanosis Neurologic: Normal mental status,The patient is awake, alert and oriented . Results Result Diagram: 08/12/16 0423 08/12/16 0423 Results 24 hrs Laboratory Tests Test 08/12/16 04:20 08/12/16 04:23 Iron Level 13 L Total Iron Binding Capacity 254 Percent Iron Saturation 5 L Hemoglobin 10.1 L Hematocrit 31.0 L Sodium Level 139 Potassium Level 3.7 Chloride Level 101 Carbon Dioxide Level 30 Anion Gap 12 # Blood Urea Nitrogen 10 Creatinine 0.65 Glucose Level 91 Calcium Level 8.3 L Ferritin 95.9 Medications Medications Current Medications Lactated Ringer's (Lr) 1,000 ml @ 100 mls/hr Q10H IV Last administered on 08/11 01:15; Admin Dose 100 MLS/HR; Start 08/10/16 at 05:00 Miscellaneous Information 1 ea 1 ea NOTE XX ; Start 08/10/16 at 13:00; Stop at 12:59 Lactated Ringer's (Lr) 1,000 ml @ 125 mls/hr Q8H IV Last administered on 12:42; Admin Dose 125 MLS/HR; Start 08/10/16 at 10:20 Celecoxib (Celebrex) 200 mg DAILY PO Last administered on 08/12/16 08:49; Admin Dose 200 MG; Start 08/11/16 at 09:00 Tramadol HCl (Ultram) 50 mg Q6 PO Last administered on 08/12/16 05:26; Admin Dose 50 MG; Start 08/10/16 at 12:00; Stop 08/13/16 at 11:59 Oxycodone HCl (Roxicodone) 5 mg Q4H PRN PO PAIN LEVEL 1-3; Start 08/10/16 at 10 :30 Oxycodone HCl (Roxicodone) 10 mg Q4H PRN PO PAIN LEVEL 4-7; Start 08/10/16 at 10:30 Hydromorphone HCl (Dilaudid) 1 mg Q3H PRN IV PAIN LEVEL 8-10; Start 08/10/16 at 10:30 Ondansetron HCl (Zofran Inj) 4 mg Q6H PRN IV NAUSEA AND/OR VOMITING; Start at 10:30 Bisacodyl (Dulcolax Supp) 10 mg Q12H PRN PA CONSTIPATION; Start 08/10/16 at 10: 30 Magnesium Hydroxide (Milk Of Mag) 30 ml BID PRN PO CONSTIPATION; Start at 10:30 Sodium Biphosphate/ Sodium Phosphate (Fleet Enema) 133 ml DAILY PRN PA CONSTIPATION; Start 08/10/16 at 10:30 Docusate Sodium (Colace) 100 mg BID PO Last administered on 08/12/16 08:49; Admin Dose 100 MG; Start 08/10/16 at 21:00 Diphenhydramine HCl (Benadryl) 25 mg Q6H PRN PO PRURITUS; Start 08/10/16 at 10: 30 Aspirin (Ecotrin) 325 mg BID PO Last administered on 08/12/16 08:49; Admin Dose 325 MG; Start 08/11/16 at 09:00 Pregabalin (Lyrica) 50 mg BID PO Last administered on 08/12/16 08:49; Admin Dose 50 MG; Start 08/10/16 at 21:00 Pantoprazole (Protonix Tab) 40 mg BID@06,18 PO Last administered on 08/12/16 05:25; Admin Dose 40 MG; Start 08/10/16 at 18:00 JONATHAN GEE MD Aug 12, 2016 11:24
--- NOTE | 2016-08-12 13:21 | DS ---
DATE OF ADMISSION: 08/10/2016 DATE OF DISCHARGE: 08/12/2016 CONDITION ON DISCHARGE: Stable. ADMITTING DIAGNOSIS: Right hip posttraumatic osteoarthritis. DISCHARGE DIAGNOSIS: Status post right anterior total hip arthroplasty. PROCEDURE PERFORMED: Right anterior total hip arthroplasty. HOSPITAL COURSE: This is a 61-year-old male who was seen in the clinic initially complaining of right hip pain. He had previously had a right hip fracture that was surgically repaired and he subsequently developed posttraumatic osteoarthritis of his right hip. Given the x-ray findings, it was thought he would benefit from a right anterior total hip arthroplasty. On 08/10/2016 the patient was admitted and taken to the operating room, where he underwent a right anterior total hip arthroplasty. There were no intraoperative complications. The patient tolerated the procedure well. He was taken to the recovery room in stable condition. Pain was well controlled with oral pain medication. He was started on aspirin and SCDs for DVT prophylaxis. He remained hemodynamically stable and neurovascularly intact throughout his hospital stay. He began physical therapy on postoperative day 1 and was deemed stable for discharge on postoperative day 2. Prior to discharge the incision was inspected and noted to be clean, dry and intact. Dressing changes were done prior to the patient going home. LABORATORY ANALYSIS: Hemoglobin 10.1, hematocrit 31.0. Chemistry panel within normal limits. DISCHARGE MEDICATIONS: 1. Hampton 5/325 mg. 2. Tramadol 50 mg. 3. Protonix 40 mg. 4. Aspirin 325 mg. 5. Additionally, the patient is to resume all of his normal home medications. DISCHARGE INSTRUCTIONS: The patient will be discharged home in stable condition. He is to resume a normal diet. Activity includes weightbearing as tolerated on the right lower extremity. Begin physical therapy with home health. He will be discharged home with the medications noted above and is to resume all of his normal home medication. The patient is to call the office or go to the emergency room for any concerns, including increased redness, swelling , drainage, fever or any concerns regarding the operation or the site of incision. FOLLOWUP: The patient is to follow up in the office on 08/21/2016. Dictated By: REJI SOLO for TOMAS COKER/RUT Conf#: [id number] DID#: [id number] [facility]
== END 2016-08-12 14:30 | disposition home health service (06) | DRG 470 ==
LOC: REC 05:39 → MS1 12:02
PROVIDERS: ADMIT Orthopaedic Surgery; ATTEND Orthopaedic Surgery
PROC: 0SR904A Replacement of Right Hip Joint with Ceramic on Polyethylene Synthetic Substitute, Uncemented, Open Approach (ICD-10-PCS; principal; 2016-08-10 07:00)
DX: M16.51 Unilateral post-traumatic osteoarthritis, right hip (principal); Z87.891 Personal history of nicotine dependence
CPT/HCPCS: 71020; 72170; 73500; 73530; 80048; 81001; 81003; 82728; 83540; 85014; 85018; 86850; 86900; 86901; 86920; 87081; 87086; 88304; 88311; 97116; 97163; 97167; 97530; Z7610; C1776; C9290; J0131; J0171; J0690; J0697; J0735; J1100; J1885; J2250; J2274; J2405; J2710; J3010; J3370; J7120

== ENCOUNTER → 2016-08-21 | Outpatient (CLI) | payer BC, OTHER ==
[~2016-08-21] MED LIST changes: +ASPI325T32 PO; -BUPIVACAINE LIPOSOME/PF 266 MG/20 ML VIAL INFIL ONE; -CEFAZOLIN 2GM/50 ML (PMX) 50 ML X1 BEFORE INCISION IVPB ONE; -CELECOXIB 400 MG PO X1 DOSE PO ONE; +HYDR-906 PO; -PAIN COCKTAIL-CEFUROXIME IRR ONE; +PANT40TA4 PO; -PREGABALIN 300 MG PO X1 PO ONE; -SOD CHLORIDE 0.9% IV ONE; +TRAM50TA2 PO; -TRANEXAMIC ACID 890 MG in SOD CHLORIDE 0.9% 100 ML IVPB ONE; -TRANEXAMIC ACID IV ONE; -oxyCODONE (CR) 10 MG TAB [oxyCONTIN] X1 DOSE PO ONE; -traMADOL 50 MG TAB X 1 DOSE PO ONE
--- NOTE | 2016-08-21 12:38 | RADRPT ---
PROCEDURE: XR pelvis/right hip. CLINICAL INDICATION: Hip pain TECHNIQUE: AP pelvis/lateral right hip view performed. COMPARISON: 08/10/2016 FINDINGS: There is a right total hip replacement. There is no evidence of loosening of the prosthesis. No hard carmona failure is identified. There is mild left hip osteoarthrosis. This is associated with joint space narrowing, subchondral sc lerosis and osteophytosis. There is normal osseous mineralization. No fractures or osseous lesions are identified. The soft tissues are unremarkable. IMPRESSION: Right total hip replacement. Mild left hip osteoarthrosis. RPTAT: HGDB .Sloan Brownlee MD, MD Date Time Electronically viewed and signed by .Sloan Brownlee MD, MD on 08/21/2016 12:38 .B/
--- NOTE | 2016-08-22 01:59 | HKNOTE ---
DATE OF SERVICE: 08/21/2016 INTERVAL HISTORY: The patient presents today for his first postoperative evaluation. He is 10 days status post right anterior total hip arthroplasty. He is doing well overall. He is ambulating usi ng a front-wheel walker, but has not started home health physical therapy yet due to insurance reaso ns. He denies any fevers or chills. He denies any significant pain. He is taking aspirin twice da alejandra for DVT prophylaxis. He presents today for first postoperative evaluation. PHYSICAL EXAMINATION: GENERAL: Today, he is alert and oriented x4 and in no acute distress. He is ambulating with a fron t-wheel walker. RIGHT HIP: Exam of the incision demonstrates it to be clean, dry, and intact. Laurel are in place . There is no erythema or warmth noted. There is no pus or drainage. He has adequate range of mot ion passively of the right hip. Homans sign is negative. Compartments are otherwise soft. He is n eurovascularly intact distally. IMAGING: X-rays of the right hip are obtained today and reviewed by me. They demonstrate good pari omic alignment with no fractures or dislocations identified. ASSESSMENT: Ten days status post right anterior total hip arthroplasty. PLAN: The shruthi were removed today and Steri-Strips were applied. He is to continue aspirin twic e daily for DVT prophylaxis for a period of 6 weeks from the date of surgery. He is to continue phy sical therapy with home health and transition to outpatient physical therapy program as needed. Add itionally, he is to continue pain medicine as needed. We will see him back in 4 weeks for repeat ev aluation. He is to call the office, in the meantime, if he has any concerns. Dictated By: REJI SOLO for TOMAS COKER/RUT Conf#: [id number] DID#: [id number]
== END | disposition home or self-care (01) ==
LOC: HKI 09:53
PROVIDERS: ATTEND Orthopaedic Surgery
DX: Z47.1 Aftercare following joint replacement surgery (principal); Z96.641 Presence of right artificial hip joint
CPT/HCPCS: 73502

== ENCOUNTER → 2016-09-11 | Outpatient (CLI) | payer BC ==
--- NOTE | 2016-09-11 13:50 | RADRPT ---
PROCEDURE: XR Right hip and pelvis. CLINICAL INDICATION: Right hip pain. Pelvic pain. Postop. TECHNIQUE: Two views. Frontal pelvis and frontal right hip. COMPARISON: No prior studies are available for comparison. FINDINGS: There is no fracture or dislocation. The soft tissues are normal. There is a right hip total arthroplasty which appears satisfactory. There are mild degenerative changes of the left hip with osteophytes noted. There is no lytic or blastic lesion. There are degenerative changes of the lower lumbar spine. IMPRESSION: 1. Satisfactory postoperative appearance of the right hip. 2. Mild degenerative changes of the left hip. RPTAT: QQ .Angelito Stinson MD, MD Date Time Electronically viewed and signed by .Angelito Stinson MD, on 09/11/2016 13:50 .R/
== END | disposition home or self-care (01) ==
LOC: HKI 09:23
PROVIDERS: ATTEND Orthopaedic Surgery
DX: Z09 Encounter for follow-up examination after completed treatment for conditions other than malignant neoplasm (principal); Z96.641 Presence of right artificial hip joint
CPT/HCPCS: 73502; G0463

== ENCOUNTER → 2016-12-06 | Outpatient (CLI) | payer BC ==
--- NOTE | 2016-12-06 10:37 | PN ---
Date/Time of Note Date/Time of Note DATE: 12/06/16 TIME: 10:35 Assessment/Plan VTE Prophylaxis VTE Prophylaxis Intervention: ambulation Assessment/Plan Assessment/Plan ASSESSMENT: 4 month status post right anterior total hip arthroplasty PLAN: The patient could resume all of his normal physical activity and walking. He should continue to avoid high impact activities. Additionally he should take antibiotics prior to any dental procedures. A prescription was given to him today. We will see him back in 4-6 months for repeat evaluation. He is to call the office the meantime if he has any concerns. Subjective 24 Hr Interval Summary Free Text/Dictation The patient presents today for a follow-up evaluation on his right hip. He is now 4 months status post right anterior total hip arthroplasty. He is doing well overall. He denies significant pain but only complains of an intermittent discomfort. He still feels like he has some mild weakness in his quad muscle that is resolving. He denies any fevers or chills. He presents today for a follow-up evaluation on his right hip. Exam/Review of Systems Exam On exam today, he is alert and oriented 4, in no acute distress. He is ambulating without any assistive devices. Examining incision demonstrates it to be clean, dry, and intact. Leg lengths are equal. He is able to perform a straight leg raise. He has no pain with passive range of motion of the right hip. Compartments are soft. He is neurovascularly intact distally. IMAGING: X-rays of the right hip are obtained today and reviewed by me. They demonstrate the leg lengths to be equal. The cup is well fixed in the acetabulum. There is no evidence of hardware loosening. There is no fractures or dislocations identified. REJI SABILLON PA-C Dec 06, 2016 10:37
--- NOTE | 2016-12-06 16:44 | RADRPT ---
PROCEDURE: XR Right hip and pelvis. CLINICAL INDICATION: Right hip pain. Pelvic pain. Postop. TECHNIQUE: Three views. Frontal pelvis. Frontal and lateral right hip. COMPARISON: 09/11/2016. FINDINGS: There is no fracture or dislocation. The soft tissues are normal. There is a right hip total arthroplasty which appears satisfactory. There are mild degenerative changes of the left hip with osteophytes noted. There is no lytic or blastic lesion. There are degenerative changes of the lower lumbar spine. IMPRESSION: 1. Satisfactory postoperative appearance of the right hip. 2. Mild degenerative changes of the left hip and lower lumbar spine. RPTAT: QQ .Angelito Stinson MD, MD Date Time Electronically viewed and signed by .Angelito Stinson MD, MD on 12/06/2016 16:44 .R/
== END | disposition home or self-care (01) ==
LOC: HKI 09:06
PROVIDERS: ATTEND Orthopaedic Surgery
DX: Z47.1 Aftercare following joint replacement surgery (principal); Z96.641 Presence of right artificial hip joint
CPT/HCPCS: 73502; Z7500; G0463